=== PATIENT | female | born 1970 | race Caucasian/White ===

== ENCOUNTER 2019-10-12 11:20 | Outpatient (CLI) | payer BC, SELFPAY ==
[2019-10-12 12:59] LABS: Free T4 Free Thyroxine 1.06 ng/mL (0.78-2.19); Vitamin D 25 Hydroxy 45.5 ng/mL
== END 2019-10-12 11:21 | disposition home or self-care (01) ==
PROVIDERS: PCP Internal Medicine; Visit Provider Internal Medicine Endocrinology, Diabetes & Metabolism
DX: E03.9 Hypothyroidism, unspecified (principal); E04.1 Nontoxic single thyroid nodule; E55.9 Vitamin D deficiency, unspecified
CPT/HCPCS: 36415; 82306; 84439; 84443

== ENCOUNTER 2020-03-03 15:34 | Outpatient (CLI) | payer BC, SELFPAY ==
[2020-03-03 17:03] LABS: Hemoglobin A1C 4.7 % (<5.7)
[2020-03-03 17:04] LABS: Free T4 Free Thyroxine 1.14 ng/mL (0.78-2.19)
[2020-03-05 12:06] LABS: Triiodothyronine T3 Free 2.7 pg/mL (2.3-4.2)
== END 2020-03-03 15:35 | disposition home or self-care (01) ==
PROVIDERS: PCP Internal Medicine; Visit Provider Internal Medicine Endocrinology, Diabetes & Metabolism
DX: E03.9 Hypothyroidism, unspecified (principal); R53.83 Other fatigue; E66.9 Obesity, unspecified; E04.9 Nontoxic goiter, unspecified; E55.9 Vitamin D deficiency, unspecified
CPT/HCPCS: 36415; 82306; 83036; 84439; 84443; 84481

== ENCOUNTER 2020-09-01 15:26 | Outpatient (CLI) | payer BC, SELFPAY ==
[2020-09-01 16:51] LABS: Cholesterol 133 mg/dL (0-200); HDL Direct 45 mg/dL; Triglycerides 191 mg/dL (<150)
[2020-09-01 17:01] LABS: LDL Cholesterol Direct 48 mg/dL
[2020-09-01 17:07] LABS: Free T4 Free Thyroxine 1.16 ng/mL (0.78-2.19); Vitamin D 25 Hydroxy 40.6 ng/mL
== END 2020-09-01 15:27 | disposition home or self-care (01) ==
LOC: ANHWCLAB 15:28
PROVIDERS: PCP Internal Medicine; Visit Provider Internal Medicine Endocrinology, Diabetes & Metabolism
DX: E03.9 Hypothyroidism, unspecified (principal); E55.9 Vitamin D deficiency, unspecified
CPT/HCPCS: 36415; 80061; 82306; 84439; 84443

== ENCOUNTER 2021-03-09 10:03 | Outpatient (CLI) | payer BC, SELFPAY ==
[2021-03-09 11:36] LABS: Free T4 Free Thyroxine 1.05 ng/mL (0.78-2.19)
[2021-03-10 14:18] LABS: Vitamin D 25 Hydroxy 36.4 ng/mL
[2021-03-12 22:46] LABS: FSH 13.4 mIU/mL (***)
[2021-03-16 17:03] LABS: Estradiol, Ultrasensitive 25 pg/mL
== END 2021-03-09 10:04 | disposition home or self-care (01) ==
LOC: ANHLAB 10:06
PROVIDERS: PCP Internal Medicine; Visit Provider Internal Medicine Endocrinology, Diabetes & Metabolism
DX: E03.9 Hypothyroidism, unspecified (principal); E04.1 Nontoxic single thyroid nodule; N95.1 Menopausal and female climacteric states; R53.83 Other fatigue
CPT/HCPCS: 36415; 82306; 82670; 83001; 84439; 84443